=== PATIENT | female | born 1985 | race African-American/Black ===

== ENCOUNTER 2023-07-25 21:32 | Emergency (ER) | payer SELFPAY ==
[~2023-07-25] VITALS: Ht 162.6 cm; Wt 55.0 kg
[2023-07-25 21:44] VITALS: BP 107/72; TEMP 98.9; O2SAT 100
[2023-07-25 21:52] VITALS: PULSE 80; RESP 18
[2023-07-26] MEDS: ACETAMINOPHEN 325MG TABLET PO STA (00:01)
[2023-07-26] MEDS: ONDANSETRON 4MG ODT PO STA (00:01)
[2023-07-26] MEDS ORDERED: D-ME473S50 PO (00:28)
[2023-07-26] MEDS ORDERED: ACET-2708 MT (00:28)
== END 2023-07-26 00:41 | disposition home or self-care (01) ==
LOC: ER 21:32
DX: J06.9 Acute upper respiratory infection, unspecified (principal); M79.10 Myalgia, unspecified site
CPT/HCPCS: 99283; Q0162